=== PATIENT | female | born 1955 | race African-American/Black ===

== ENCOUNTER 2025-08-28 21:03 | Inpatient (IN) | payer MEDICARE, OTHER ==
[~2025-08-28] VITALS: Ht 157.5 cm; Wt 54.9 kg
[2025-08-28 22:09] LABS: PLATELET COUNT (AUTO) 290 K/uL (150-450); RED BLOOD CELL COUNT(AUTO) 4.54 MIL/uL (4.0-5.2); RED CELL DISTRIBUTION WIDTH 14.0 % (11.5-15.0); WHITE BLOOD COUNT (AUTO) 4.7 K/uL (4.3-11.0)
[2025-08-28 22:24] LABS: CALCIUM, SERUM 9.5 mg/dL (8.5-10.1); CREATININE 0.7 mg/dL (0.6-1.3); SODIUM SERUM 139 mmol/L (136-145); UREA NITROGEN, BLOOD 15 mg/dL (7-18)
[2025-08-28 22:31] LABS: ASPARTATE AMINOTRANSFERASE 19 U/L (15-37); TOTAL PROTEIN, SERUM 8.1 g/dL (6.4-8.2)
[2025-08-28] MEDS: IV NS 0.9% 1,000 ML BAG IV ONE (22:34)
[2025-08-28 22:40] LABS: PHOSPHORUS 4.0 mg/dL (2.5-4.9)
[2025-08-29] MEDS ORDERED: ONDANSETRON HCL/PF 4 MG/2 ML VIAL IVP PRN
[2025-08-29 02:35] VITALS: BP 153/83; TEMP 97.5; O2SAT 96
[2025-08-29] MEDS: IV NS 0.9% 1,000 ML IV PRN (02:51)
[2025-08-29] MEDS: ENOXAPARIN SODIUM 40 MG/0.4 ML DISP.SYRIN SQ SCH (02:53)
[2025-08-29 06:53] LABS: PLATELET COUNT (AUTO) 218 K/uL (150-450); RED BLOOD CELL COUNT(AUTO) 4.35 MIL/uL (4.0-5.2); RED CELL DISTRIBUTION WIDTH 14.1 % (11.5-15.0); WHITE BLOOD COUNT (AUTO) 5.0 K/uL (4.3-11.0)
[2025-08-29 07:30] VITALS: BP 159/82; TEMP 98.1; O2SAT 100
[2025-08-29 07:35] LABS: ASPARTATE AMINOTRANSFERASE 24.0 U/L (15-37); CALCIUM, SERUM 8.7 mg/dL (8.5-10.1); CREATININE 0.5 mg/dL (0.6-1.3); PHOSPHORUS 3.8 mg/dL (2.5-4.9); SODIUM SERUM 140.0 mmol/L (136-145); TOTAL PROTEIN, SERUM 7.4 g/dL (6.4-8.2); UREA NITROGEN, BLOOD 12.0 mg/dL (7-18)
[2025-08-29] MEDS ORDERED: BISA10SU11 RC (08:10)
[2025-08-29] MEDS ORDERED: ALBU1.257 INH ×2 (08:10)
[2025-08-29] MEDS ORDERED: ATOR10TA PO (08:10)
[2025-08-29] MEDS ORDERED: ASPI-1169 PO (08:10)
[2025-08-29] MEDS ORDERED: POTA10TA11 PO (08:10)
[2025-08-29] MEDS ORDERED: IPRA0.2S9 IH (08:10)
[2025-08-29] MEDS ORDERED: ACET-868 PO (08:10)
[2025-08-29] MEDS ORDERED: MAGN400O6 PO (08:10)
[2025-08-29] MEDS ORDERED: ESCI10TA PO (08:10)
[2025-08-29] MEDS ORDERED: FERR220S2 PO (08:10)
[2025-08-29] MEDS ORDERED: AMLO-213 PO (08:10)
[2025-08-29] MEDS ORDERED: DOCU-141 PO (08:10)
[2025-08-29] MEDS ORDERED: NA P133E RC (08:10)
[2025-08-29] MEDS: PANTOPRAZOLE 40 MG VIAL IV SCH (09:18)
[2025-08-29 15:34] LABS: APPEARANCE,URINE CLEAR (CLEAR); BLOOD, URINE NEGATIVE Ery/uL (NEGATIVE); LEUKOCYTE ESTERASE ,URINE NEGATIVE (NEGATIVE); NITRITE, URINE NEGATIVE (NEGATIVE); UGLUCOSE NEGATIVE (NEGATIVE)
[2025-08-29 16:00] VITALS: BP 147/102; TEMP 97.9; O2SAT 95
[2025-08-29 20:00] VITALS: BP 133/75; TEMP 98.1; O2SAT 99
[2025-08-30 09:53] VITALS: BP 149/73; TEMP 97.5; O2SAT 98
[2025-08-30 20:00] VITALS: BP 132/75; TEMP 98.4; O2SAT 97
[2025-08-31 07:00] VITALS: BP 146/78; TEMP 97.3; O2SAT 100
[2025-08-31 15:00] VITALS: BP 151/100; TEMP 98.8; O2SAT 95
[2025-08-31 20:00] VITALS: BP 123/81; TEMP 98.1; O2SAT 97
[2025-09-01 08:00] VITALS: BP 161/68; TEMP 98.1; O2SAT 100
[2025-09-01] MEDS ORDERED: IPRATROPIUM NEB FS 0.5 MG/2.5 ML AMPUL.NEB NEB PRN (11:00)
[2025-09-01] MEDS ORDERED: ACETAMINOPHEN 325 MG TABLET PO PRN (11:00)
[2025-09-01] MEDS ORDERED: MAGNESIUM HYDROXIDE 30 ML UDC PO PRN (11:00)
[2025-09-01] MEDS ORDERED: ALBUTEROL HALF STRENGTH 1.25 MG/3 ML VIAL.NEB NEB PRN (11:00)
[2025-09-01] MEDS ORDERED: BISACODYL SUPP (10 MG) 10 MG/SUPP.RECT SUPP.RECT RC PRN (11:00)
[2025-09-01] MEDS ORDERED: NA PHOS,M-B/NA PHOS,DI-BA 1 EA ENEMA RC PRN (11:00)
[2025-09-01] MEDS: AMLODIPINE BESYLATE 10 MG TABLET PO SCH (11:27)
[2025-09-01] MEDS: ESCITALOPRAM OXALATE (10 MG) 10 MG TABLET PO SCH (11:27)
[2025-09-01] MEDS: POTASSIUM CHLORIDE 10 MEQ TABLET.SA PO SCH (11:28)
[2025-09-01] MEDS: ASPIRIN 81 MG TAB.CHEW PO SCH (11:33)
[2025-09-01] MEDS: DOCUSATE SODIUM 100 MG CAPSULE PO SCH (11:33)
[2025-09-01 12:00] VITALS: BP 119/99; TEMP 98.1; O2SAT 97
[2025-09-01] MEDS ORDERED: ALBUTEROL HALF STRENGTH 1.25 MG/3 ML VIAL.NEB NEB SCH (19:30)
[2025-09-01] MEDS ORDERED: ATORVASTATIN 10 MG TABLET PO SCH (22:00)
[2025-09-02] MEDS ORDERED: FERROUS SULFATE UDC 300 MG/5 ML UDC PO SCH (09:00)
== END 2025-09-01 15:15 | DRG 641 ==
LOC: ER 22:03 → MED 08-29 02:12
PROVIDERS: ADMIT Nurse Practitioner Family; ATTEND Nurse Practitioner Acute Care
DX: E86.0 Dehydration (principal); R62.7 Adult failure to thrive; F29 Unspecified psychosis not due to a substance or known physiological condition; F02.83 Dementia in other diseases classified elsewhere, unspecified severity, with mood disturbance; J44.9 Chronic obstructive pulmonary disease, unspecified; Z20.822 Contact with and (suspected) exposure to COVID-19; F20.9 Schizophrenia, unspecified; F31.9 Bipolar disorder, unspecified; G30.9 Alzheimer's disease, unspecified; E78.5 Hyperlipidemia, unspecified; I25.2 Old myocardial infarction; F39 Unspecified mood [affective] disorder; Z79.51 Long term (current) use of inhaled steroids; Z79.82 Long term (current) use of aspirin
CPT/HCPCS: 36415; 71045-TC; 80048-TC; 80076-TC; 83690-TC; 83735-TC; 84100-TC; 84443-TC; 84484-TC; 85025-TC; 87081-TC; 87086-TC; 92526; 92611; A4223; A6213; A6254; G0378; J1650; J2470; J7030